=== PATIENT | female | born 1970 ===

== ENCOUNTER 2018-11-07 12:00 | Day surgery (SDC) | payer BC ==
[2018-11-07] MEDS ORDERED: LIDOCAINE 2% MDV (20MG/ML) 20ML VIAL IV ONE (12:01)
[2018-11-07] MEDS ORDERED: PROPOFOL 10 MG/ML VIAL IV ONE (12:01)
[2018-11-07] MEDS ORDERED: MIDAZOLAM HCL 2MG/2ML VIAL IV ONE (12:01)
--- NOTE | 2018-11-09 08:30 | Operative Note ---
OPERATION: COLONOSCOPY to the cecum. INDICATION: Colorectal cancer screening. ANESTHESIA: Intravenous sedation was administered by the department of anesthesiology and included Diprivan titrated to effect. PROCEDURE: Following informed consent from this alert individual including a discussion of the risks and benefits of the procedure and an opportunity for the patient to ask questions, the patient was in the left lateral decubitus position. A digital rectal examination was performed. No abnormalities were noted. Following this, the Olympus [id number] video colonoscope was inserted into the rectum without resistance. The rectal mucosa had a normal appearance with normal folds and distensibility. The colonoscope was advanced up through the colon to the level of the cecum without much difficulty. Throughout the bowel the mucosa appeared normal, the folds were normal, and the bowel was fairly well distensible. Some scattered diverticula were noted in the sigmoid colon. The cecum was well defined by noting the appendiceal orifice and ileocecal valve. The colon preparation overall was good. From the base of the cecum, the colonoscope was then withdrawn. No additional abnormalities were detected upon slow withdrawal. Again there were scattered diverticula in the sigmoid colon but no other mucosal changes appreciated. Retroflexion in the rectum was unremarkable. The endoscope was straightened and removed. The patient tolerated the procedure well and was returned to the recovery area in stable condition. IMPRESSION: 1. Sigmoid diverticulosis. 2. Otherwise unremarkable colonoscopy to the cecum. RECOMMENDATIONS: The patient was advised to have recheck colonoscopy in 10 years' time or sooner if problems arise. Followup will be with Dr. Luis Jensen. As always, thank you for allowing me to participate in the care of your patient. KRISTINE
== END 2018-11-07 14:55 | disposition home or self-care (01) ==
LOC: HOP 12:00
PROVIDERS: ATTEND Internal Medicine Gastroenterology
DX: Z12.11 Encounter for screening for malignant neoplasm of colon (principal); K57.30 Diverticulosis of large intestine without perforation or abscess without bleeding; E03.9 Hypothyroidism, unspecified
CPT/HCPCS: 00812; G0121